=== PATIENT | female | born 1960 | race Caucasian/White ===

== ENCOUNTER → 2018-04-13 13:16 | Outpatient (CLI) | payer OTHER, SELFPAY ==
--- NOTE | 2018-04-13 | DI.MG.S_ITS ---
BILATERAL DIGITAL SCREENING MAMMOGRAM 3D/2D WITH CAD: 04/13/2018 CLINICAL: Routine screening. Comparison is made to exams dated: 03/15/2017 mammogram, 02/01/2016 mammogram, and 01/11/2015 mammogram - [facility]. The tissue of both breasts is predominantly fatty. Current study was also evaluated with a Computer Aided Detection (CAD) system. There are surgical clips in the right breast. There is an asymmetry in the right breast posterior depth medial region seen on the craniocaudal view only. No other significant masses, calcifications, or other findings are seen in either breast. IMPRESSION: INCOMPLETE: NEEDS ADDITIONAL IMAGING EVALUATION The asymmetry in the right breast is indeterminate. Additional views with possible ultrasound are recommended. This exam was interpreted at Station ID: [id number]. NOTE: For mammograms, a report in lay terms will be sent to the patient. Approximately 15% of breast malignancies will not be visualized mammographically. In the management of a palpable breast mass, a negative mammogram must not discourage biopsy of a clinically suspicious lesion. Electronically Signed By: Felicitas monroy/lily:04/15/2018 08:34:54 letter sent: Additional Imaging Needed ACR BI-RADS Category 0: Incomplete 3340F
== END ==
PROVIDERS: Family Provider Family Medicine; PCP Family Medicine; Visit Provider Family Medicine
DX: Z12.31 Encounter for screening mammogram for malignant neoplasm of breast (principal)
CPT/HCPCS: 77063; 77067

== ENCOUNTER → 2018-04-23 13:37 | Outpatient (CLI) | payer OTHER, SELFPAY ==
--- NOTE | 2018-04-23 | DI.MG.S_ITS ---
UNILATERAL RIGHT DIGITAL DIAGNOSTIC MAMMOGRAM 3D/2D WITH ADDITIONAL VIEWS: 04/23/2018 CLINICAL: Additional evaluation requested from prior study. Comparison is made to exams dated: 03/15/2017 mammogram, 04/13/2018 mammogram, and 02/01/2016 mammogram - [facility]. There are scattered fibroglandular elements in right breast. There is 0.7 cm oval equal density asymmetry with a circumscribed margin in the right breast at 3 o'clock posterior depth. No other significant masses or calcifications are seen in the breast. IMPRESSION: INCOMPLETE: NEEDS ADDITIONAL IMAGING EVALUATION The 0.7 cm oval equal density asymmetry in the right breast is indeterminate. An ultrasound is recommended. This exam was interpreted at Station ID: [id number]. NOTE: For mammograms, a report in lay terms will be sent to the patient. Approximately 15% of breast malignancies will not be visualized mammographically. In the management of a palpable breast mass, a negative mammogram must not discourage biopsy of a clinically suspicious lesion. Electronically Signed By: Pk fournier/lily:04/23/2018 14:25:14 letter sent: Need Ultrasound ACR BI-RADS Category 0: Incomplete 3340F
--- NOTE | 2018-04-23 | DI.US.S_ITS ---
LIMITED ULTRASOUND OF RIGHT BREAST: 04/23/2018 CLINICAL: Patient returns for additional imaging over a suspected mass in the right breast. Comparison is made to exams dated: 04/23/2018 mammogram, 04/13/2018 mammogram, and 03/15/2017 mammogram - [facility]. Color flow and real-time ultrasound of the right breast 4 o'clock region were performed on the areas of interest. Salazar scale images of the real-time examination were reviewed. There is 0.5 cm x 0.3 cm x 0.5 cm oval complicated cyst with a smooth internal wall in the right breast at 4 o'clock posterior depth. This oval complicated cyst is hypoechoic. This correlates with mammography findings. Color flow imaging demonstrates that there is no vascularity present. No abnormalities were seen sonographically in the right breast. IMPRESSION: PROBABLY BENIGN The 0.5 cm x 0.3 cm x 0.5 cm oval complicated cyst in the right breast likely represents a complicated cyst and is probably benign. Follow-up mammogram and ultrasound in 6 months is recommended. A follow-up mammogram and an ultrasound in 6 months is recommended to demonstrate stability.(10/23/2018) This exam was interpreted at Station ID: [id number]. Electronically Signed By: Pk fournier/lily:04/23/2018 16:26:55 letter sent: Followup Recommended Ultrasound BI-RADS: 3 Probably benign
== END ==
PROVIDERS: Family Provider Family Medicine; PCP Family Medicine; Visit Provider Family Medicine
DX: R92.8 Other abnormal and inconclusive findings on diagnostic imaging of breast (principal); N60.01 Solitary cyst of right breast
CPT/HCPCS: 76642; 77065; G0279

== ENCOUNTER → 2018-11-13 13:14 | Outpatient (CLI) | payer OTHER, SELFPAY ==
--- NOTE | 2018-11-13 | DI.MG.S_ITS ---
UNILATERAL RIGHT DIGITAL DIAGNOSTIC MAMMOGRAM 3D/2D SHORT-TERM FOLLOW-UP: 11/13/2018 CLINICAL: Patient returns for a 6 month follow up of the right breast. Comparison is made to exams dated: 04/23/2018 mammogram, 04/13/2018 mammogram, and 03/15/2017 mammogram - [facility]. There are scattered fibroglandular elements in right breast. There is a focal asymmetry in the right breast at 4 o'clock posterior depth. This is decreased in size. No other significant masses or calcifications are seen in the breast. IMPRESSION: INCOMPLETE: NEEDS ADDITIONAL IMAGING EVALUATION The focal asymmetry in the right breast is indeterminate. A targeted ultrasound of the right breast is recommended and will be performed immediately following this exam. This exam was interpreted at Station ID: [id number]. NOTE: For mammograms, a report in lay terms will be sent to the patient. Approximately 15% of breast malignancies will not be visualized mammographically. In the management of a palpable breast mass, a negative mammogram must not discourage biopsy of a clinically suspicious lesion. Electronically Signed By: Felicitas Glass M.D. lk/:11/13/2018 13:35:45 ACR BI-RADS Category 0: Incomplete 3340F
--- NOTE | 2018-11-13 | DI.US.S_ITS ---
ULTRASOUND OF RIGHT BREAST: 11/13/2018 CLINICAL: 6 month follow-up of the right breast. Comparison is made to exams dated: 11/13/2018 mammogram, 04/23/2018 ultrasound, 04/23/2018 mammogram, 04/13/2018 mammogram, 03/15/2017 mammogram, and 02/01/2016 mammogram - [facility]. Continuous wave Doppler ultrasound of the right breast was performed on the area of interest. The oval complicated cyst with a smooth internal wall in the right breast at 4 o'clock posterior depth is decreased in size and correlates with mammography findings. Color flow imaging demonstrates that there is no vascularity present. IMPRESSION: PROBABLY BENIGN The complicated cyst in the right breast is probably benign. A follow-up right mammogram and an ultrasound in 6 months is recommended to demonstrate stability. This exam was interpreted at Station ID: [id number]. Electronically Signed By: Felicitas monroy/:11/13/2018 15:54:47 letter sent: Followup Recommended Ultrasound BI-RADS: 3 Probably benign
== END ==
PROVIDERS: PCP Family Medicine; Visit Provider Family Medicine
DX: R92.8 Other abnormal and inconclusive findings on diagnostic imaging of breast (principal); N60.01 Solitary cyst of right breast
CPT/HCPCS: 76642; 77065; G0279

== ENCOUNTER → 2019-06-02 09:07 | Outpatient (CLI) | payer OTHER, SELFPAY ==
--- NOTE | 2019-06-02 | DI.US.S_ITS ---
LIMITED ULTRASOUND OF RIGHT BREAST: 06/02/2019 CLINICAL: 6 month follow-up of the right breast. Comparison is made to exams dated: 06/02/2019 mammogram, 11/13/2018 ultrasound, 11/13/2018 mammogram, 04/23/2018 ultrasound, 04/23/2018 mammogram, and 04/13/2018 mammogram - [facility]. Color flow and real-time ultrasound of the right breast 3-4 o'clock region were performed. Salazar scale images of the real-time examination were reviewed. There is a 0.4 x 0.3 x 0.2 cm oval indistinct hypoechoic cyst with increased through transmission/posterior acoustic enhancement, and no vascularity on Doppler ultrasound located in the right breast at 4 o'clock 3 cm from the nipple. This appears to correlate with the finding seen on mammography. This previously measured 0.3 x 0.3 x 0.2 cm on comparison ultrasound of 11/13/18 and 0.5 x 0.5 x 0.3 cm on comparison ultrasound of 04/23/18. IMPRESSION: PROBABLY BENIGN Stable 0.4 x 0.3 x 0.2 cm complicated cyst in the right breast at 4 o'clock 3 cm from the nipple is probably benign. A follow-up mammogram and an ultrasound in 6 months is recommended to demonstrate stability. The patient is advised to monitor her breasts and to return sooner for re-evaluation should she feel anything grow or change. This exam was interpreted at Station ID: [id number]. Electronically Signed By: Guero Tijerina M.D. ecl/:06/02/2019 10:27:56 letter sent: Followup Recommended Ultrasound BI-RADS: 3 Probably benign
--- NOTE | 2019-06-02 | DI.MG.S_ITS ---
BILATERAL DIGITAL DIAGNOSTIC MAMMOGRAM 3D/2D SHORT-TERM FOLLOW-UP: 06/02/2019 CLINICAL: Patient returns for 6 month follow up of right breast, due for bilateral exam. Comparison is made to exams dated: 11/13/2018 mammogram, 04/23/2018 mammogram, 04/13/2018 mammogram, 04/23/2018 ultrasound, 11/13/2018 ultrasound, and 03/15/2017 mammogram - [facility]. There are scattered fibroglandular elements in both breasts. Previously identified asymmetry in the right breast posterior depth medial region described as being near 3-4 o'clock position on comparison mammograms remains stable. No other significant masses, calcifications, or other findings are seen in either breast. IMPRESSION: INCOMPLETE: NEEDS ADDITIONAL IMAGING EVALUATION Previously identified asymmetry in the right breast posterior depth medial region described as being near 3-4 o'clock position on comparison mammograms remains stable. A targeted ultrasound is recommended for further evaluation, and will be performed immediately following this exam. This exam was interpreted at Station ID: [id number]. NOTE: For mammograms, a report in lay terms will be sent to the patient. Approximately 15% of breast malignancies will not be visualized mammographically. In the management of a palpable breast mass, a negative mammogram must not discourage biopsy of a clinically suspicious lesion. Electronically Signed By: Guero Tijerina M.D. ecl/:06/02/2019 09:52:26 ACR BI-RADS Category 0: Incomplete 3340F
== END ==
PROVIDERS: PCP Family Medicine; Visit Provider Family Medicine
DX: R92.8 Other abnormal and inconclusive findings on diagnostic imaging of breast (principal); N60.01 Solitary cyst of right breast
CPT/HCPCS: 76642; 77066; G0279

== ENCOUNTER → 2020-10-01 11:47 | Outpatient (CLI) | payer OTHER, SELFPAY ==
[2020-10-01] MEDS: COVID-19 VACC, Ad26(JANSSEN)/PF 0.5 ML IM (11:53)
== END ==
PROVIDERS: Visit Provider Internal Medicine
DX: Z23 Encounter for immunization (principal)
CPT/HCPCS: 0031A; 91303

== ENCOUNTER → 2021-05-19 09:21 | Outpatient (CLI) | payer OTHER, SELFPAY ==
--- NOTE | 2021-05-19 09:22 | DI.MG.S_ITS ---
BILATERAL DIGITAL DIAGNOSTIC MAMMOGRAM 3D/2D: 05/19/2021 CLINICAL: Short term follow up of the right breast, due for bilateral imaging. Comparison is made to exams dated: 06/02/2019 mammogram, 11/13/2018 mammogram, 04/23/2018 mammogram, and 04/13/2018 mammogram - [facility]. There are scattered fibroglandular elements in both breasts. There is a focal asymmetry in the right breast at 4 o'clock posterior depth. This is less prominent. No other significant masses, calcifications, or other findings are seen in either breast. Post-operative findings in the right breast upper outer quadrant. IMPRESSION: INCOMPLETE: NEEDS ADDITIONAL IMAGING EVALUATION The focal asymmetry in the right breast is indeterminate. A targeted ultrasound is recommended and will immediately follow. This exam was interpreted at Station ID: [id number]. NOTE: For mammograms, a report in lay terms will be sent to the patient. Approximately 15% of breast malignancies will not be visualized mammographically. In the management of a palpable breast mass, a negative mammogram must not discourage biopsy of a clinically suspicious lesion. Electronically Signed By: Gorge Campos M.D. slc/:05/19/2021 10:01:49 ACR BI-RADS Category 0: Incomplete 3340F
--- NOTE | 2021-05-19 09:22 | DI.US.S_ITS ---
LIMITED ULTRASOUND OF RIGHT BREAST: 05/19/2021 CLINICAL: Patient returns today to evaluate a focal asymmetry in the right breast. Comparison is made to exams dated: 05/19/2021 mammogram, 06/02/2019 ultrasound, 06/02/2019 mammogram, 11/13/2018 ultrasound, 11/13/2018 mammogram, and 04/23/2018 [facility]. Real-time ultrasound of the right breast 4-5 o'clock region was performed. Salazar scale images of the real-time examination were reviewed. Previously seen small complicated cyst at 4 o'clock 3 cm from the nipple is no longer seen. IMPRESSION: NEGATIVE There is no sonographic evidence of malignancy. Previously seen small complicated cyst is no longer seen. A 1 year screening mammogram is recommended. Exam findings were conveyed to the patient. This exam was interpreted at Station ID: [id number]. Electronically Signed By: Gorge Campos M.D. slc/:05/19/2021 10:57:54 letter sent: Normal Exam Ultrasound BI-RADS: 1 Negative
== END ==
PROVIDERS: PCP Family Medicine; Referring Provider Family Medicine; Visit Provider Family Medicine
DX: R92.8 Other abnormal and inconclusive findings on diagnostic imaging of breast (principal); N64.89 Other specified disorders of breast
CPT/HCPCS: 76642; 77066; G0279

== ENCOUNTER → 2022-05-26 08:33 | Outpatient (CLI) | payer OTHER, SELFPAY ==
--- NOTE | 2022-05-26 | DI.MG.S_ITS ---
BILATERAL DIGITAL SCREENING MAMMOGRAM 3D/2D WITH CAD: 05/26/2022 CLINICAL: Routine screening. Comparison is made to exams dated: 05/19/2021 mammogram, 06/02/2019 mammogram, 11/13/2018 mammogram, and 04/23/2018 mammogram - [facility]. There are scattered areas of fibroglandular density in both breasts (category b / 25%-50% glandular tissue). Current study was also evaluated with a Computer Aided Detection (CAD) system. There are benign post operative findings in the right breast. No significant masses, calcifications, or other findings are seen in either breast. There has been no significant interval change. IMPRESSION: BENIGN There is no mammographic evidence of malignancy. A 1 year screening mammogram is recommended. Based on Tyrer-Cuzick model (a risk assessment model), the patient's lifetime risk is 27.7% and her 10 year risk is 13.4%. If a patient has an elevated risk, a more comprehensive evaluation should be considered and/or a referral to a genetic counselor. The [employer], [employer], and NCCN Guidelines advise the consideration of Breast MRI as an adjunct to screening mammography in patients whose Lifetime risk to develop breast cancer is 20% or higher. This exam was interpreted at Station ID: [id number]. NOTE: For mammograms, a report in lay terms will be sent to the patient. Approximately 15% of breast malignancies will not be visualized mammographically. In the management of a palpable breast mass, a negative mammogram must not discourage biopsy of a clinically suspicious lesion. Electronically Signed By: Aman fuchs/lily:05/26/2022 13:24:03 letter sent: Normal Exam ACR BI-RADS Category 2: Benign Finding(s) 3342F
== END ==
PROVIDERS: PCP Family Medicine; Referring Provider Family Medicine; Visit Provider Family Medicine
DX: Z12.31 Encounter for screening mammogram for malignant neoplasm of breast (principal)
CPT/HCPCS: 77063; 77067

== ENCOUNTER → 2024-03-07 08:53 | Outpatient (CLI) | payer OTHER, SELFPAY ==
--- NOTE | 2024-03-07 08:57 | DI.CT.S_ITS ---
PROCEDURE: CT CHEST ABD PEL W CON INDICATIONS: ABD DISTENSION/GERD/WEIGHT LOSS TECHNIQUE: After the administration of intravenous contrast, 5 mm thick sections acquired from the lung apices to the symphysis. 5 mm coronal and sagittal reformats were performed, with additional 7 mm MIP reformats through the lungs. For radiation dose reduction, the following was used: automated exposure control, adjustment of mA and/or kV according to patient size. COMPARISON: None. FINDINGS: Image quality: Excellent. CHEST: Lower Neck: No enlarged lymph nodes. Thyroid: No thyroid nodules which require sonographic follow up, per consensus guidelines. Axillae: No enlarged lymph nodes. Chest Wall: Unremarkable. Lungs and Pleura: No pneumothorax or pleural effusions. No focal airspace opacity or consolidation. No suspicious pulmonary nodules or masses. Heart: Heart size is normal. No pericardial effusion. Thoracic Vessels: The aorta and pulmonary arteries demonstrate normal size. Mediastinum and Genevieve: Borderline sized and anterior mediastinal lymph node measuring 1.0 cm in greatest transverse dimension (series 2, image 23). No other enlarged mediastinal or hilar lymph nodes. Esophagus: No wall thickening. Small hiatal hernia. ABDOMEN: Liver: No solid mass. Gallbladder: Surgically absent Biliary ducts: Common hepatic duct is dilated measuring upwards of 2.1 cm in greatest diameter (series 2, image 49) possibly related to prior cholecystectomy. Pancreas: No ductal dilation. Spleen: Size is within normal limits. Adrenal Glands: No adrenal nodules. Kidneys and Ureters: No hydronephrosis. No solid mass. No complex renal cystic lesion which requires follow up. Stomach and Bowel: Normal colonic caliber, without significant wall thickening. Peritoneum: No abnormal intraperitoneal fluid. No free air. At least 3 small subcentimeter peritoneal nodules within the anterior pelvis and left lower quadrant (series 2, images 116 and 117). Ventral Wall: No significant ventral hernia. Abdominal Nodes: No retroperitoneal or mesenteric adenopathy by size criteria. Vessels: Aorta and inferior vena cava are normal in size. Diffuse aortoiliac vascular calcifications. PELVIS: Pelvic Organs: Large cystic mass occupying the majority of the abdomen and pelvis measuring 35.7 cm x 27.9 cm x 35.7 cm. Along the periphery of the mass within the inferior aspect, there is mural nodularity associated with this mass. The mass displaces the majority of the abdominal viscera within the abdomen and pelvis. The uterus is surgically absent. Small amount of free fluid is present within the pelvis and bilateral pericolic gutters. Bladder: No bladder wall thickening, accounting for underdistention. Pelvic Nodes: No enlarged lymph nodes. Miscellaneous: No inguinal hernias are seen. Bones: No aggressive osseous abnormality. Small meningioma within the T6 vertebral body. IMPRESSION: 1. Large cystic mass occupying the majority of the abdomen and pelvis measuring 35.7 cm x 27.9 cm x 34.7 cm with containing mural nodularity and highly suspicious for cystic ovarian neoplasm. Consultation with gynecologic oncology is recommended. 2. At least 3 small peritoneal nodules adjacent to the mass within the anterior pelvis and left lower quadrant and suspicious for peritoneal implants possibly related to above described process. A small amount of free fluid is also present within the pelvis. 3. Borderline sized anterior mediastinal lymph node measuring 1.0 cm in greatest transverse dimension which is nonspecific. Dictated by: Carlyle Prather M.D. on 03/07/2024 at 13:01 Approved by: Carlyle Prather M.D. on 03/07/2024 at 13:29
== END ==
PROVIDERS: PCP Internal Medicine; Referring Provider Internal Medicine; Visit Provider Internal Medicine
DX: R19.09 Other intra-abdominal and pelvic swelling, mass and lump (principal); K21.9 Gastro-esophageal reflux disease without esophagitis; R14.0 Abdominal distension (gaseous); K44.9 Diaphragmatic hernia without obstruction or gangrene; R63.4 Abnormal weight loss; Z85.820 Personal history of malignant melanoma of skin; Z90.49 Acquired absence of other specified parts of digestive tract; Z90.710 Acquired absence of both cervix and uterus
CPT/HCPCS: 71260; 74177; Q9967

== ENCOUNTER → 2024-03-11 12:39 | Outpatient (CLI) | payer OTHER, SELFPAY ==
[2024-03-11 14:47] LABS: Free T4, Direct Thyroxine 1.81 ng/dL (0.78-2.19)
[2024-03-11 15:01] LABS: Thyroid Stimulating Hormone 5.07 uIU/mL (0.47-4.68)
[2024-03-11 15:43] LABS: Cancer Antigen 125 3810 U/mL (0-35)
== END ==
PROVIDERS: PCP Internal Medicine; Referring Provider Internal Medicine; Visit Provider Internal Medicine
DX: N83.8 Other noninflammatory disorders of ovary, fallopian tube and broad ligament (principal); R19.00 Intra-abdominal and pelvic swelling, mass and lump, unspecified site; E03.9 Hypothyroidism, unspecified
CPT/HCPCS: 36415; 84439; 84443; 86304; 86305

== ENCOUNTER → 2024-05-22 07:43 | Outpatient (CLI) | payer OTHER, SELFPAY ==
--- NOTE | 2024-05-22 07:44 | DI.MG.S_ITS ---
BILATERAL DIGITAL SCREENING MAMMOGRAM 3D/2D WITH CAD: 05/22/2024 CLINICAL: Routine screening. Comparison is made to exams dated: 05/26/2022 mammogram, 05/19/2021 mammogram, and 06/02/2019 mammogram - [facility]. There are scattered areas of fibroglandular density (category b / 25%-50% glandular tissue). Current study was also evaluated with a Computer Aided Detection (CAD) system. There are benign post operative findings in the right breast. No significant masses, calcifications, or other findings are seen in either breast. There has been no significant interval change. IMPRESSION: BENIGN There is no mammographic evidence of malignancy. A 1 year screening mammogram is recommended. Based on Tyrer-Cuzick model (a risk assessment model), the patient's lifetime risk is 26.3% and her 10 year risk is 13.5%. If a patient has an elevated risk, a more comprehensive evaluation should be considered and/or a referral to a genetic counselor. The [place] [employer], [employer], and NCCN Guidelines advise the consideration of Breast MRI as an adjunct to screening mammography in patients whose Lifetime risk to develop breast cancer is 20% or higher. This exam was interpreted at Station ID: [id number]. NOTE: For mammograms, a report in lay terms will be sent to the patient. Approximately 15% of breast malignancies will not be visualized mammographically. In the management of a palpable breast mass, a negative mammogram must not discourage biopsy of a clinically suspicious lesion. Electronically Signed By: Gorge mace/lily:05/22/2024 17:57:03 letter sent: Normal Exam ACR BI-RADS Category 2: Benign
== END ==
PROVIDERS: PCP Internal Medicine; Referring Provider Internal Medicine; Visit Provider Internal Medicine
DX: Z12.31 Encounter for screening mammogram for malignant neoplasm of breast (principal)
CPT/HCPCS: 77063; 77067

== ENCOUNTER → 2025-06-02 08:22 | Outpatient (CLI) | payer OTHER, SELFPAY ==
--- NOTE | 2025-06-02 08:25 | DI.CT.S_ITS ---
PROCEDURE: CT ABDOMEN PELVIS W CON
[2025-06-02 08:47] LABS: Estimated Glomerular Filt Rate > 60 mL/min (>60)
== END ==
LOC: CT 08:24
PROVIDERS: PCP Family Medicine; Referring Provider Family Medicine; Visit Provider Family Medicine
DX: K44.9 Diaphragmatic hernia without obstruction or gangrene (principal); K57.90 Diverticulosis of intestine, part unspecified, without perforation or abscess without bleeding; K83.8 Other specified diseases of biliary tract; K43.9 Ventral hernia without obstruction or gangrene; Z86.018 Personal history of other benign neoplasm; Z90.49 Acquired absence of other specified parts of digestive tract
CPT/HCPCS: 36415; 74177; 82565; Q9967

== ENCOUNTER → 2025-06-10 17:01 | Outpatient (CLI) | payer OTHER, SELFPAY ==
--- NOTE | 2025-06-10 17:02 | DI.MG.S_ITS ---
MM screening mammo BI: 06/10/2025. BI-RADS: 2 CLINICAL: 65-year old female for bilateral screening mammogram. No Tyrer-Cuzick risk score calculation due to the patient's personal history of breast cancer. Patient reports a history of right breast carcinoma diagnosed at age 50. No first-degree family history of breast cancer. The patient had a prior right breast biopsy. PRIOR EXAMS 05/22/2024, 05/26/2022, 05/19/2021, 06/02/2019, MAMMOGRAPHY TECHNIQUE: 2D and 3D (tomosynthesis) digital mammographic views obtained, with additional images as needed for full coverage. Current study was also evaluated with a Computer Aided Detection (CAD) system. DENSITY A. The breasts are almost entirely fatty. MAMMOGRAPHY FINDINGS Right: Surgical clips present on the right. Benign-appearing post- surgical changes noted on the right. There are no suspicious masses, calcifications, or other findings in the breast. Left: No suspicious mass, asymmetry, microcalcification, or other abnormality seen. IMPRESSION: Right * No evidence of malignancy with benign findings. Left * No evidence of malignancy. RECOMMENDATIONS Bilateral * Annual screening mammography. OVERALL ASSESSMENT CATEGORY BI-RADS-2: Benign. The [employer] recommends annual screening mammography beginning at age 40 for women with average risk of breast cancer. ELECTRONICALLY SIGNED: Gui Thomas M.D. on 06/26/2025 at 03:41:33 PM PT Interpreting Station ID: [id number]
== END ==
LOC: MAMMO 17:02
PROVIDERS: PCP Family Medicine; Referring Provider Family Medicine; Visit Provider Family Medicine
DX: Z12.31 Encounter for screening mammogram for malignant neoplasm of breast (principal); Z85.3 Personal history of malignant neoplasm of breast; R92.313 Mammographic fatty tissue density, bilateral breasts
CPT/HCPCS: 77063; 77067

== ENCOUNTER → 2025-06-17 15:23 | Outpatient (CLI) | payer OTHER, SELFPAY ==
--- NOTE | 2025-06-17 15:26 | DI.RAD.S_ITS ---
PROCEDURE: XR THORACIC SPINE 3V INDICATIONS: BACK PAIN TECHNIQUE: 3 views of the thoracic spine were acquired. COMPARISON: None. FINDINGS: Bones: No fractures or dislocations. No suspicious bony lesions. Loss of disc height, degenerative endplate changes are noted throughout thoracic spine. 12 pairs of ribs are noted, and appear intact where visualized. Soft tissues: No paravertebral stripe thickening. IMPRESSION: Fthy-je-uepuplzi degenerative disc disease throughout thoracic spine. No acute compression fracture or significant spondylolisthesis. Dictated by: Michael Roberto M.D. on 06/17/2025 at 16:04 Approved by: Michael Roberto M.D. on 06/17/2025 at 16:05
--- NOTE | 2025-06-17 15:26 | DI.RAD.S_ITS ---
PROCEDURE: XR LUMBAR SPINE 2-3V INDICATIONS: BACK PAIN TECHNIQUE: 3 views of the lumbar spine were acquired. COMPARISON: None. FINDINGS: Bones: 5 [id number]-iycrjyc vertebrae are present. There is mild leftward curvature of lumbar spine with apex at L3 level. Loss of disc height, degenerative endplate changes and bilateral facet arthrosis throughout lumbar spine. No vertebral body compression fractures. No suspicious bony lesions. Soft tissues: Overlying bowel gas pattern is normal. No suspicious soft tissue calcifications. IMPRESSION: [id number]-[id number] degenerative disc disease throughout lumbar spine. No acute compression fracture or significant spondylolisthesis. Mild leftward curvature centered at L3 level. Dictated by: Michael Roberto M.D. on 06/17/2025 at 16:05 Approved by: Michael Roberto M.D. on 06/17/2025 at 16:05
== END ==
PROVIDERS: PCP Family Medicine; Referring Provider Family Medicine; Visit Provider Family Medicine
DX: M51.34 Other intervertebral disc degeneration, thoracic region (principal); M51.369 Other intervertebral disc degeneration, lumbar region without mention of lumbar back pain or lower extremity pain; M47.816 Spondylosis without myelopathy or radiculopathy, lumbar region; M54.50 Low back pain, unspecified; W19.XXXA Unspecified fall, initial encounter; Y92.009 Unspecified place in unspecified non-institutional (private) residence as the place of occurrence of the external cause
CPT/HCPCS: 72072; 72100